=== PATIENT | female | born 1955 | race Caucasian/White ===

== ENCOUNTER 2017-03-25 15:07 | Observation (INO) | payer OTHER ==
[~2017-03-25] VITALS: Ht 157.5 cm; Wt 109.5 kg
[~2017-03-25 15:07] MED LIST: Aspirin E.C. PO; CIPRO500 MG PO; Cymbalta PO; Desyrel PO; FIORICET,ESG1 TABLET PO; NEXIUM40 MG PO; Neurontin PO; Plavix PO; SOMA250 MG PO; Tenormin PO; Vitamin D PO
[2017-03-25 16:00] LABS: HEMATOCRIT 37.1 % (36.0-46.0); MCH 27.1 PG (29.0-34.0); MCHC 32.9 G/DL (30.0-36.0); MCV 82.3 FL (83-99); MEAN PLAT.VOLUME 10.7 uM^3 (9.5-12.4); PLATELET COUNT 275 K/uL (156-360); RBC DIS.WIDTH-CV 12.5 % (11.8-14.6); RBC DIS.WIDTH-SD 37.4 % (39-53); RED BLOOD COUNT 4.51 M/uL (3.80-5.20); WHITE BLOOD COUNT 7.1 K/uL (4.1-10.2)
[2017-03-25 16:10] LABS: CHLORIDE 107 mEq/L (99-109); POTASSIUM 4.2 mEq/L (3.7-5.4); SODIUM 141 mEq/L (136-147)
[2017-03-25 16:11] LABS: GLUCOSE 105 mg/dL (70-99)
[2017-03-25 16:13] LABS: ANION GAP 10 MEQ/L (2-14)
[2017-03-25 16:15] LABS: GFR ESTIMATE (CALCULATED) > 59 mL/min/
[2017-03-25 16:16] LABS: UREA NITROGEN (BUN) 16 mg/dL (9-23)
[2017-03-25 16:22] LABS: TROP-I INTERPRETATION NEGATIVE; TROPONIN-I < 0.01 ng/mL (0.0-0.30)
[2017-03-25] MEDS ORDERED: DESYREL100 MG PO (17:25)
[2017-03-25] MEDS ORDERED: PLAVIX75 MG PO (17:26)
[2017-03-25] MEDS ORDERED: NEURONTIN600 MG PO (17:28)
[2017-03-25] MEDS ORDERED: CYMBALTA60 MG PO (17:29)
[2017-03-25] MEDS ORDERED: VITAMIN D-32000 UNI2 PO (17:30)
[2017-03-25] MEDS ORDERED: LOW DOSE ASPIRI81 M1 PO (17:31)
[2017-03-25] MEDS ORDERED: TENORMIN50 MG PO (17:31)
[2017-03-25] MEDS ORDERED: LASIX80 MG PO (17:44)
[2017-03-25] MEDS ORDERED: ADVAIR 250/501 DISK IH (17:47)
[2017-03-25] MEDS ORDERED: COMBIVENT RESPIM4 GM IH (17:47)
[2017-03-25] MEDS ORDERED: LEVO-T175 MCG PO (17:47)
[2017-03-25] MEDS ORDERED: NITROSTAT0.4 MG SL (17:48)
[2017-03-25] MEDS ORDERED: REMERON30 M2 PO (17:48)
[2017-03-25] MEDS ORDERED: TOPIRAMATE50 MG PO (17:49)
[2017-03-25 18:09] VITALS: BP 131/62
[2017-03-25 19:23] VITALS: BP 142/69
[2017-03-25 21:22] LABS: TROP-I INTERPRETATION NEGATIVE; TROPONIN-I < 0.01 ng/mL (0.0-0.30)
[2017-03-26 00:36] VITALS: BP 133/65
[2017-03-26 04:30] VITALS: BP 117/63
[2017-03-26 04:36] LABS: HEMATOCRIT 37.4 % (36.0-46.0); MCH 26.5 PG (29.0-34.0); MCHC 31.8 G/DL (30.0-36.0); MCV 83.3 FL (83-99); MEAN PLAT.VOLUME 10.5 uM^3 (9.5-12.4); PLATELET COUNT 250 K/uL (156-360); RBC DIS.WIDTH-CV 12.6 % (11.8-14.6); RBC DIS.WIDTH-SD 38.4 % (39-53); RED BLOOD COUNT 4.49 M/uL (3.80-5.20)
[2017-03-26 04:45] LABS: CHLORIDE 107 mEq/L (99-109); SODIUM 140 mEq/L (136-147)
[2017-03-26 04:47] LABS: GLUCOSE 117 mg/dL (70-99)
[2017-03-26 04:48] LABS: ANION GAP 10 MEQ/L (2-14)
[2017-03-26 04:51] LABS: GFR ESTIMATE (CALCULATED) > 59 mL/min/
[2017-03-26 04:52] LABS: UREA NITROGEN (BUN) 15 mg/dL (9-23)
[2017-03-26 04:56] LABS: TROP-I INTERPRETATION NEGATIVE; TROPONIN-I < 0.01 ng/mL (0.0-0.30)
[2017-03-26 09:00] VITALS: BP 116/65
== END 2017-03-26 10:57 | disposition home or self-care (01) ==
LOC: EME 15:07 → EDOF 16:58 → 5WEST 16:58
PROVIDERS: Emergency Medicine; Hospitalist
DX: R07.9 Chest pain, unspecified (principal); I25.10 Atherosclerotic heart disease of native coronary artery without angina pectoris; I10 Essential (primary) hypertension; J44.9 Chronic obstructive pulmonary disease, unspecified; K21.9 Gastro-esophageal reflux disease without esophagitis; Z87.891 Personal history of nicotine dependence; G43.909 Migraine, unspecified, not intractable, without status migrainosus; Z86.73 Personal history of transient ischemic attack (TIA), and cerebral infarction without residual deficits; F32.9 Major depressive disorder, single episode, unspecified; E66.9 Obesity, unspecified; Z68.41 Body mass index [BMI] 40.0-44.9, adult; G89.29 Other chronic pain; M54.9 Dorsalgia, unspecified
CPT/HCPCS: 71020; 80048; 84484; 85027; 93005; 94640; 94640 76; 99202; 99281; 99284; G0378; J1644